=== PATIENT | male | born 1965 | race Two or more races ===

== ENCOUNTER 2021-04-30 07:51 | Emergency (ER) | payer OTHER ==
[~2021-04-30] VITALS: Ht 172.7 cm; Wt 83.9 kg
[2021-04-30] MEDS ORDERED: CRESTOR40 MG PO (08:13)
[2021-04-30] MEDS ORDERED: CHILDREN'S ASPI81 MG PO (08:13)
[2021-04-30] MEDS ORDERED: KETO10TA2 PO (15:52)
[2021-04-30] MEDS ORDERED: TAMS0.4C PO (15:52)
[2021-04-30] MEDS ORDERED: CEFUROXIME500 MG PO (15:52)
[2021-04-30] MEDS ORDERED: PYRIDIUM DS200 MG PO (15:52)
[2021-05-01] MEDS ORDERED: BENADRYL25 MG PO (03:31)
[2021-05-01] MEDS ORDERED: MEDROL8 MG PO (03:31)
== END 2021-04-30 16:27 ==
LOC: ER 07:51
DX: N13.8 Other obstructive and reflux uropathy (principal)

== ENCOUNTER → 2021-05-01 | Emergency (ER) | payer OTHER ==
[~2021-05-01] VITALS: Ht 172.7 cm; Wt 83.9 kg
[~2021-05-01] MED LIST: BENADRYL25 MG PO; CEFUROXIME500 MG PO; CHILDREN'S ASPI81 MG PO; CRESTOR40 MG PO; KETO10TA2 PO; MEDROL8 MG PO; PYRIDIUM DS200 MG PO; TAMS0.4C PO
== END | disposition home or self-care (01) ==
LOC: ER 01:02
DX: T78.3XXA Angioneurotic edema, initial encounter (principal); T36.1X5A Adverse effect of cephalosporins and other beta-lactam antibiotics, initial encounter; Y92.098 Other place in other non-institutional residence as the place of occurrence of the external cause; Z03.818 Encounter for observation for suspected exposure to other biological agents ruled out

== ENCOUNTER 2022-04-01 11:59 | Emergency (ER) | payer OTHER ==
[~2022-04-01] VITALS: Ht 172.7 cm; Wt 86.2 kg
[2022-04-01] MEDS ORDERED: KETO10TA2 PO (13:58)
== END 2022-04-01 14:28 | disposition home or self-care (01) ==
LOC: ER 11:59
DX: M77.8 Other enthesopathies, not elsewhere classified (principal)